=== PATIENT | male | born 1970 | race Caucasian/White ===

== ENCOUNTER 2018-12-28 05:05 | Emergency (ER) | payer OTHER ==
[~2018-12-28] VITALS: Ht 162.6 cm; Wt 77.1 kg
[2018-12-28 05:10] VITALS: BP 155/90
--- NOTE | 2018-12-28 05:10 | NUR ---
to bed # 11 ambulatory
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
--- NOTE | 2018-12-28 05:38 | NUR ---
Dr. George evaluating patient at bedside.
[2018-12-28 05:50] VITALS: BP 155/90
--- NOTE | 2018-12-28 05:50 | NUR ---
Patient discharged with v/s stable. Written and verbal after care instructions given and explained. Patient alert, oriented and verbalized understanding of instructions. Ambulatory with steady gait. All questions addressed prior to discharge. ID band removed. Patient advised to follow up with PMD. Rx of Bactrim and Motrin given. Patient educated on indication of medication including possible reaction and side effects. Opportunity to ask questions provided and answered.
== END 2018-12-28 05:50 | disposition home or self-care (01) ==
LOC: MED 05:05
DX: L03.113 Cellulitis of right upper limb (principal); L03.114 Cellulitis of left upper limb; L02.811 Cutaneous abscess of head [any part, except face]; F31.9 Bipolar disorder, unspecified; J44.9 Chronic obstructive pulmonary disease, unspecified; F17.200 Nicotine dependence, unspecified, uncomplicated; Z88.0 Allergy status to penicillin
CPT/HCPCS: 99283

== ENCOUNTER 2020-05-08 01:33 | Emergency (ER) | payer OTHER ==
[~2020-05-08] VITALS: Ht 162.6 cm; Wt 72.6 kg
[2020-05-08 01:38] VITALS: BP 142/90
[2020-05-08] MEDS ORDERED: AMOXIL/CLAVULANATE 875/125 MG 1 TAB PO ONE (01:55)
[2020-05-08] MEDS ORDERED: HYDROcodone/APAP 10/325 MG 1 TAB TAB PO STA (02:09)
[2020-05-08 03:28] VITALS: BP 142/90
== END 2020-05-08 03:28 | disposition home or self-care (01) ==
LOC: MED 01:33
DX: S61.451A Open bite of right hand, initial encounter (principal); R93.6 Abnormal findings on diagnostic imaging of limbs; J44.9 Chronic obstructive pulmonary disease, unspecified; Z88.0 Allergy status to penicillin; W64.XXXA Exposure to other animate mechanical forces, initial encounter; Y93.89 Activity, other specified; Y92.89 Other specified places as the place of occurrence of the external cause; Y99.8 Other external cause status
CPT/HCPCS: 73130; 99283; Q0092

== ENCOUNTER 2020-07-17 14:52 | Emergency (ER) | payer OTHER ==
[~2020-07-17] VITALS: Ht 162.6 cm; Wt 77.1 kg
[2020-07-17 14:54] VITALS: BP 125/71
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
[2020-07-17] MEDS: KETOROLAC 30 MG/ML VIAL IM ONE (15:52)
[2020-07-17] MEDS: HYDROcodone/APAP 5/325 MG 1 TAB TAB PO ONE (15:52)
[2020-07-17 16:12] VITALS: BP 125/71
--- NOTE | 2020-07-17 16:13 | NUR ---
Patient discharged with v/s stable. Written and verbal after care instructions given and explained. Patient alert, oriented and verbalized understanding of instructions. Ambulatory with steady gait. All questions addressed prior to discharge. ID band removed. Patient advised to follow up with PMD. Rx of KEFLEX, NAPROSYN given. Patient educated on indication of medication including possible reaction and side effects. Opportunity to ask questions provided and answered.
--- NOTE | 2020-07-17 16:14 | NUR ---
applied finger splint to right 4th digit without any issues
== END 2020-07-17 16:13 | disposition home or self-care (01) ==
LOC: MED 14:52
DX: M79.644 Pain in right finger(s) (principal); M19.90 Unspecified osteoarthritis, unspecified site; I10 Essential (primary) hypertension; J44.9 Chronic obstructive pulmonary disease, unspecified; Z88.0 Allergy status to penicillin
CPT/HCPCS: 29130; 73130; 96372; 99283; J1885; Q0092

== ENCOUNTER 2020-09-19 22:58 | Emergency (ER) | payer OTHER ==
[~2020-09-19] VITALS: Ht 162.6 cm; Wt 77.1 kg
[2020-09-19 23:00] VITALS: BP 170/88
--- NOTE | 2020-09-19 23:03 | NUR ---
TO LOBBY A/W BED AMBULATORY
--- NOTE | 2020-09-20 02:36 | NUR ---
PT LEFT WITHOUT BEING SEEN
== END 2020-09-20 02:36 | disposition left against medical advice (07) ==
LOC: MED 22:58
DX: L03.221 Cellulitis of neck (principal); Z53.21 Procedure and treatment not carried out due to patient leaving prior to being seen by health care provider

== ENCOUNTER 2020-09-21 12:30 | Emergency (ER) | payer OTHER ==
[~2020-09-21] VITALS: Ht 162.6 cm; Wt 77.6 kg
[2020-09-21 12:36] VITALS: BP 172/92
--- NOTE | 2020-09-21 12:43 | NUR ---
50 YO M BIB SELF FOR C/C OF LESION ON BACK OF NECK AND SWELLING TO PERINEAL AREA X3 DAYS. DENIES URINARY SYMPTOMS, STATES SEXUAL ACTIVITY WITH ONE FEMALE PARTNER. DENIES COVID SYMPTOMS. MED HX: HTN, KIDNEY STONES
--- NOTE | 2020-09-21 12:44 | NUR ---
DR. LYLES ASSESSING PT IN TRIAGE ROOM
--- NOTE | 2020-09-21 12:45 | NUR ---
CHAPERONES FOR ERMD WHILE DOING GENITAL EXAMINATION
--- NOTE | 2020-09-21 12:45 | NUR ---
Thu domingo in ED - 09/21/20 at 1247 by [email or web address] Female Bore Mill Operator accompanied female patient for Exam.
--- NOTE | 2020-09-21 12:56 | NUR ---
UA PROVIDED, SCANT AMOUNT OF URINE. WATER PROVIDED FOR ADDITIONAL SAMPLE IF NEEDED.
--- NOTE | 2020-09-21 13:31 | NUR ---
PT CALLED BACK TO CHAIR FOR LABS
--- NOTE | 2020-09-21 13:36 | NUR ---
PT TAKEN TO US VIA WHEELCHAIR
[2020-09-21 13:43] LABS: BASOPHILS % (AUTO) 0.4 % (0.0-2.0); EOSINOPHILS # (AUTO) 0.1 K/uL (0-0.4); EOSINOPHILS % (AUTO) 1.5 % (0.0-4.0); HEMATOCRIT 47.1 % (36-52); HEMOGLOBIN 15.9 g/dL (12.0-18.0); LYMPHOCYTES # (AUTO) 2.1 K/uL (2.0-11.5); LYMPHOCYTES % (AUTO) 22.1 % (20.5-51.1); MEAN CORPUSCULAR HEMOGLOBIN 31 pg (27-31); MEAN CORPUSCULAR HGB CONC 34 g/dL (33-37); MEAN CORPUSCULAR VOLUME 90.5 fL (80-94); MONOCYTES # (AUTO) 0.6 K/uL (0.8-1.0); MONOCYTES % (AUTO) 6.6 % (1.7-9.3); NEUTROPHILS # (AUTO) 6.6 K/uL (1.8-7.7); NEUTROPHILS % (AUTO) 69.4 % (42.2-75.2); PLATELET COUNT (AUTO) 319 K/uL (140-450); RED CELL DISTRIBUTION WIDTH 13.9 % (11.6-13.7); WHITE BLOOD COUNT (AUTO) 9.5 K/uL (4.8-10.8)
[2020-09-21 14:33] LABS: ALBUMIN 4.1 g/dL (3.4-5.0); ANION GAP 9.4 (8-16); CARBON DIOXIDE 32.5 mmol/L (21-32); CREATININE 1.2 mg/dL (0.6-1.3); POTASSIUM 3.9 mmol/L (3.5-5.1); TOTAL BILIRUBIN 0.3 mg/dL (0.0-1.0)
--- NOTE | 2020-09-21 15:41 | NUR ---
Called patient. No answer.
--- NOTE | 2020-09-21 16:17 | NUR ---
Patient ambulated to chair C. RN evaluating patient at bedside.
--- NOTE | 2020-09-21 16:48 | NUR ---
Dr Manzano at [facility] for ultrasound guided IV placement.
[2020-09-21] MEDS ORDERED: MORPHINE SULFATE 4 MG/ML SYR IVP ONE (17:50)
--- NOTE | 2020-09-21 17:59 | NUR ---
Patient refused IV morphine. Medication wasted and witnessed by ABBE Leiva. Dr Manzano made aware
[2020-09-21] MEDS ORDERED: LIDOCAINE/EPI 1% 1:100000 20 ML VIAL INJ ONE (18:10)
[2020-09-21 18:40] VITALS: BP 162/89
--- NOTE | 2020-09-21 18:40 | NUR ---
Patient discharged with v/s stable. Written and verbal after care instructions given and explained. Patient alert, oriented and verbalized understanding of instructions. Ambulatory with steady gait. All questions addressed prior to discharge. ID band removed. Patient advised to follow up with PMD. Rx of NORCO, BACTRIM given. Patient educated on indication of medication including possible reaction and side effects. Opportunity to ask questions provided and answered.
== END 2020-09-21 18:40 | disposition home or self-care (01) ==
LOC: MED 12:30
DX: N48.89 Other specified disorders of penis (principal); N48.29 Other inflammatory disorders of penis
CPT/HCPCS: 36415; 74177; 76870; 80053; 81002; 85025; 86140; 99285; J2001; J2270; Q9967

== ENCOUNTER 2020-11-04 08:27 | Emergency (ER) | payer OTHER ==
[~2020-11-04] VITALS: Ht 162.6 cm; Wt 81.6 kg
[2020-11-04 08:32] VITALS: BP 153/90
[2020-11-04] MEDS ORDERED: LIDOCAINE MPF 1% 10 MG/ML VIAL INJ ONE (09:10)
[2020-11-04] MEDS ORDERED: BACITRACIN OINT 500 UNITS/GM PKT TP ONE (09:25)
[2020-11-04 09:41] VITALS: BP 153/90
== END 2020-11-04 09:40 | disposition home or self-care (01) ==
LOC: MED 08:27
DX: L02.415 Cutaneous abscess of right lower limb (principal); J44.9 Chronic obstructive pulmonary disease, unspecified; I10 Essential (primary) hypertension; F17.210 Nicotine dependence, cigarettes, uncomplicated; Z88.0 Allergy status to penicillin
CPT/HCPCS: 10060; 99284; J2001

== ENCOUNTER 2020-11-15 12:05 | Emergency (ER) | payer OTHER ==
[~2020-11-15] VITALS: Ht 162.6 cm; Wt 31.8 kg
--- NOTE | 2020-11-15 12:13 | NUR ---
Patient ambulated to bed 2. RN evaluating the patient at bedside.
[2020-11-15 12:14] VITALS: BP 148/81
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
--- NOTE | 2020-11-15 12:23 | NUR ---
DR. KHAN AT BEDSIDE EVALATING PT.
[2020-11-15] MEDS: HYDROcodone/APAP 5/325 MG 1 TAB TAB PO ONE (12:44)
[2020-11-15] MEDS: ONDANSETRON 4 MG ODT PO ONE (12:45)
[2020-11-15 12:53] VITALS: BP 136/84
--- NOTE | 2020-11-15 12:54 | NUR ---
Patient provided with sandwich upon request.
--- NOTE | 2020-11-15 12:54 | NUR ---
Patient discharged with v/s stable. Written and verbal after care instructions given and explained. Patient alert, oriented and verbalized understanding of instructions. Ambulatory with steady gait. All questions addressed prior to discharge. ID band removed. Patient advised to follow up with PMD. Rx of Zofran 4mg, [place] 5mg-325mg, and Clindamycin 150mg given. Patient educated on indication of medication including possible reaction and side effects. Opportunity to ask questions provided and answered.
== END 2020-11-15 12:54 | disposition home or self-care (01) ==
LOC: MED 12:05
DX: L03.115 Cellulitis of right lower limb (principal); J44.1 Chronic obstructive pulmonary disease with (acute) exacerbation; I10 Essential (primary) hypertension; F17.200 Nicotine dependence, unspecified, uncomplicated; Z88.0 Allergy status to penicillin
CPT/HCPCS: 99283; Q0162

== ENCOUNTER 2021-04-11 14:26 | Emergency (ER) | payer OTHER ==
[~2021-04-11] VITALS: Ht 170.2 cm; Wt 88.5 kg
[2021-04-11 14:39] VITALS: BP 132/91
[2021-04-11] MEDS ORDERED: OXCA300T PO (15:08)
[2021-04-11] MEDS ORDERED: MIRT-91 PO (15:08)
[2021-04-11] MEDS ORDERED: IBUP-2218 PO (15:08)
[2021-04-11] MEDS ORDERED: ALBU0.0912 IH (15:08)
[2021-04-11] MEDS ORDERED: HYDR-3293 PO (15:08)
[2021-04-11] MEDS ORDERED: BECL10.62 INH (15:08)
[2021-04-11] MEDS ORDERED: HYDR10SY57 PO (15:08)
[2021-04-11 15:32] VITALS: BP 132/91
== END 2021-04-11 15:32 | disposition home or self-care (01) ==
LOC: MED 14:26
DX: E11.65 Type 2 diabetes mellitus with hyperglycemia (principal); J44.9 Chronic obstructive pulmonary disease, unspecified; R31.9 Hematuria, unspecified; F20.9 Schizophrenia, unspecified; Z88.0 Allergy status to penicillin; Z79.899 Other long term (current) drug therapy
CPT/HCPCS: 99281

== ENCOUNTER 2021-06-01 18:09 | Emergency (ER) | payer OTHER ==
[~2021-06-01] VITALS: Ht 162.6 cm; Wt 77.1 kg
[~2021-06-01 18:09] MED LIST: ALBU0.0912 IH; BECL10.62 INH; HYDR-3293 PO; HYDR10SY57 PO; IBUP-2218 PO; MIRT-91 PO; OXCA300T PO
--- NOTE | 2021-06-01 18:17 | NUR ---
50 Y/O MALE C/O RIGHT 3RD FINGER ABSCESS X 2 DAYS. PT STATES PAIN 7/10 DESCRIBES SHARP NON-RADIATING. DENIES N/V, DENIES FEVER/CHILLS. PMH:HTN ALLERGIES: PCN
[2021-06-01 18:20] VITALS: BP 155/98
[2021-06-01] MEDS ORDERED: KETOROLAC 30 MG/ML VIAL IM ONE (18:20)
--- NOTE | 2021-06-01 18:26 | NUR ---
PT AMBULATED TO XR WITH HOTEL CUSTODIAN.
--- NOTE | 2021-06-01 18:27 | NUR ---
50 Y/O MALE C/O RIGHT 3RD FINGER ABSCESS X 2 DAYS. PT STATES PAIN 7/10 DESCRIBES SHARP NON-RADIATING. DENIES N/V, DENIES FEVER/CHILLS. PMH:HTN ALLERGIES: PCN
--- NOTE | 2021-06-01 18:36 | NUR ---
PT AMBULATED TO [facility]
[2021-06-01] MEDS ORDERED: SULF-58 PO (18:46)
[2021-06-01] MEDS ORDERED: IBUP-1842 PO (18:46)
[2021-06-01 18:56] VITALS: BP 151/96
--- NOTE | 2021-06-01 18:58 | NUR ---
Patient discharged with v/s stable. Written and verbal after care instructions given PARONYCHIA and explained. Patient alert, oriented and verbalized understanding of instructions. Ambulatory with steady gait. All questions addressed prior to discharge. ID band removed. Patient advised to follow up with PMD. Rx of [id number] PO BID FOR 10DAYS, AND IBUPROFEN 400MG PO QID PRN given. Patient educated on indication of medication including possible reaction and side effects. Opportunity to ask questions provided and answered.
== END 2021-06-01 18:58 | disposition home or self-care (01) ==
LOC: MED 18:09
DX: L03.011 Cellulitis of right finger (principal); J44.9 Chronic obstructive pulmonary disease, unspecified; I10 Essential (primary) hypertension; Z79.899 Other long term (current) drug therapy; Z88.0 Allergy status to penicillin
CPT/HCPCS: 73140; 96372; 99283; J1885

== ENCOUNTER 2021-06-17 11:44 | Emergency (ER) | payer OTHER ==
[~2021-06-17] VITALS: Ht 162.6 cm; Wt 82.6 kg
[~2021-06-17 11:44] MED LIST changes: +IBUP-1842 PO; +SULF-58 PO
[2021-06-17 12:10] VITALS: BP 185/101
[2021-06-17 12:22] VITALS: BP 185/101
[2021-06-17] MEDS ORDERED: KETOROLAC 30 MG/ML VIAL IM ONE (12:50)
--- NOTE | 2021-06-17 13:06 | NUR ---
SANDWICH GIVEN TO PT.
[2021-06-17] MEDS ORDERED: NAPR-54 PO (14:24)
[2021-06-17] MEDS ORDERED: SULF-59 PO (14:24)
[2021-06-17] MEDS ORDERED: CEPH500C16 PO (14:24)
--- NOTE | 2021-06-17 14:30 | NUR ---
Patient discharged with v/s stable. Written and verbal after care instructions given and explained. Patient alert, oriented and verbalized understanding of instructions. Ambulatory with steady gait. All questions addressed prior to discharge. ID band removed. Patient advised to follow up with PMD. Rx of Cephalexin, Naproxen, Bactrim given. Patient educated on indication of medication including possible reaction and side effects. Opportunity to ask questions provided and answered.
== END 2021-06-17 14:30 | disposition home or self-care (01) ==
LOC: MED 11:44
DX: L03.011 Cellulitis of right finger (principal); J44.9 Chronic obstructive pulmonary disease, unspecified; I10 Essential (primary) hypertension; Z88.0 Allergy status to penicillin; Z79.899 Other long term (current) drug therapy
CPT/HCPCS: 73130; 96372; 99283; J1885

== ENCOUNTER 2021-07-26 07:49 | Emergency (ER) | payer OTHER ==
[~2021-07-26] VITALS: Ht 162.6 cm; Wt 85.0 kg
[~2021-07-26 07:49] MED LIST changes: +CEPH500C16 PO; +NAPR-54 PO; +SULF-59 PO
[2021-07-26 07:56] VITALS: BP 171/105
--- NOTE | 2021-07-26 08:08 | NUR ---
DR CHAPIN AT BEDSIDE EVALUATING PT
[2021-07-26] MEDS ORDERED: DOXYCYCLINE 100 MG CAP PO SCH (08:15)
--- NOTE | 2021-07-26 08:15 | NUR ---
51 Y/O MALE BIB SELF FOR "BUG BITES" IN HIS RIGHT AXILLA. 3 PINK BUMPS NOTED UNDER HIS RIGHT ARM, TENDER TO TOUCH. AOX4 , ABLE TO MAKE ALL NEEDS KNOWN. DENIES N/V/D. DENIES CHEST PAIN. PMH: HTN, COPD ALLERGIES:PCN NO HOME MEDS
[2021-07-26] MEDS ORDERED: DOXY-690 PO (08:16)
[2021-07-26] MEDS ORDERED: ACETAMINOPHEN EXTRA STRENGTH 500 MG TAB PO ONE (08:25)
--- NOTE | 2021-07-26 08:57 | NUR ---
DR CHAPIN AT BEDSIDE
[2021-07-26 09:07] VITALS: BP 141/82
== END 2021-07-26 09:07 | disposition home or self-care (01) ==
LOC: MED 07:49
DX: S00.96XA Insect bite (nonvenomous) of unspecified part of head, initial encounter (principal); L73.2 Hidradenitis suppurativa; J44.9 Chronic obstructive pulmonary disease, unspecified; I10 Essential (primary) hypertension; Z88.0 Allergy status to penicillin; Z79.899 Other long term (current) drug therapy; W57.XXXA Bitten or stung by nonvenomous insect and other nonvenomous arthropods, initial encounter; Y93.89 Activity, other specified; Y92.89 Other specified places as the place of occurrence of the external cause; Y99.8 Other external cause status
CPT/HCPCS: 99283

== ENCOUNTER 2021-08-29 17:46 | Emergency (ER) | payer OTHER ==
[~2021-08-29] VITALS: Ht 160 cm; Wt 84.8 kg
[~2021-08-29 17:46] MED LIST changes: +DOXY-690 PO
--- NOTE | 2021-08-29 17:48 | NUR ---
BIB WHEELCHAIR TO ER BED 4
[2021-08-29 17:53] VITALS: BP 129/94
--- NOTE | 2021-08-29 17:59 | NUR ---
51 Y/O MALE C/O VOMITING AND ABDOMINAL PAIN 07/21 DESCRIBES BURNING NON-RADIATING. ABDOMEN IS SOFT, ROUND, BOWEL SOUNDS ACTIVE X4, LAST BM 08/28/21. PT STATES + DYSURIA X LAST NIGHT. DENIES FEVER/CHILLS. PMH: HTN, COPD ALLERGY: PCN
--- NOTE | 2021-08-29 18:26 | NUR ---
DR. PALACIOS AT PT BEDSIDE FOR FURTHER EVALUATION.
[2021-08-29] MEDS ORDERED: FAMOTIDINE 20 MG TAB PO ONE (18:35)
[2021-08-29] MEDS ORDERED: DICYCLOMINE 10 MG CAP PO ONE (18:35)
[2021-08-29] MEDS ORDERED: ONDANSETRON 4 MG ODT PO ONE (18:35)
--- NOTE | 2021-08-29 18:40 | NUR ---
PT STATES HE IS UNABLE TO PROVIDE UA SAMPLE AT THIS TIME. MADE AWARE.
--- NOTE | 2021-08-29 19:19 | NUR ---
GAVE REPORT TO ABBE COREAS. TRANSFER OF CARE AT THIS TIME.
--- NOTE | 2021-08-29 20:17 | NUR ---
patient want to call his sister betsey to pick him out AT THE MOMENT TO BE DISCHARGED and his call and he say is ok to give information about his health status //Ronak MCADAMS
[2021-08-29] MEDS ORDERED: ONDA-188 SL (20:21)
[2021-08-29 20:28] VITALS: BP 132/72
[2021-08-29 20:33] LABS: BARBITURATE, URINE NEGATIVE ng/ml (NEG <=200); BENZODIAZEPINE, URINE NEGATIVE ng/mL (NEG <=200); CANNABINOID, URINE POSITIVE ng/mL (NEG <=50); COCAINE, URINE NEGATIVE ng/mL (NEG <=300); OPIATE, URINE NEGATIVE ng/mL (NEG <=2000); PHENCYCLIDINE SCREEN,URINE NEGATIVE ng/mL (NEG <=25)
--- NOTE | 2021-08-29 20:33 | NUR ---
PATIENT DC HOME FEELING WELL VITALS SIGNS IN NORMAL LIMITS NOT COMPLAINING OF PAIN WE TALK TO [place] HIS SISTER AND SHE SAY SHE IS NOT ABLE TO PICK HIM OUT AND HE SAY THAT HIS GOING IN HIS OWN PATIENT SIGNS THE DC INSTRUCTION AND WALK OUT WE RECOMENDED TO COMING BACK TO THE HOSPITAL IF THE SYMPTOMS GET WORSE OR DOESNT IMPROVING //Ronak MCADAMS
== END 2021-08-29 20:22 | disposition home or self-care (01) ==
LOC: MED 17:46
DX: K52.9 Noninfective gastroenteritis and colitis, unspecified (principal); R11.2 Nausea with vomiting, unspecified; R19.7 Diarrhea, unspecified
CPT/HCPCS: 80305; 81002; 99284; Q0162

== ENCOUNTER 2021-09-27 19:40 | Emergency (ER) | payer OTHER ==
[~2021-09-27] VITALS: Ht 157.5 cm; Wt 81.6 kg
[~2021-09-27 19:40] MED LIST changes: +ONDA-188 SL
[2021-09-27 20:33] VITALS: BP 149/90
[2021-09-27] MEDS ORDERED: RIFA300C6 PO (22:29)
[2021-09-27] MEDS ORDERED: NAPR-54 PO (22:29)
[2021-09-27] MEDS ORDERED: CLIN300C2 PO (22:29)
[2021-09-27] MEDS ORDERED: HYDROcodone/APAP 10/325 MG 1 TAB TAB PO STA (22:30)
[2021-09-27] MEDS ORDERED: CLINDAMYCIN 150 MG CAP PO ONE (22:30)
[2021-09-27] MEDS ORDERED: OXCA300T PO (22:46)
[2021-09-27] MEDS ORDERED: HYDR-3293 PO (22:46)
[2021-09-27] MEDS ORDERED: MIRT-91 PO (22:46)
[2021-09-27] MEDS: RIFAXIMIN 550 MG TAB PO SCH (23:00)
[2021-09-28] MEDS ORDERED: HYDR-5191 PO (00:26)
[2021-09-28] MEDS: RIFAXIMIN 550 MG TAB PO SCH (00:26)
[2021-09-28] MEDS ORDERED: BECL10.62 INH (00:26)
[2021-09-28] MEDS ORDERED: ALBU0.0912 IH (00:26)
[2021-09-28 00:30] VITALS: BP 149/90
--- NOTE | 2021-09-28 00:30 | NUR ---
Patient discharged with v/s stable. Written and verbal after care instructions given and explained. Patient alert, oriented and verbalized understanding of instructions. Ambulatory with steady gait. All questions addressed prior to discharge. ID band removed. Patient advised to follow up with PMD. Rx of CLEOCIN, LOSARTAN, REMERON, NAPROSYN, TRILEPTAL, RIFAMPIN given. Patient educated on indication of medication including possible reaction and side effects. Opportunity to ask questions provided and answered.
== END 2021-09-28 00:30 | disposition home or self-care (01) ==
LOC: MED 19:40
DX: L73.2 Hidradenitis suppurativa (principal)
CPT/HCPCS: 99284

== ENCOUNTER 2022-02-01 20:56 | Emergency (ER) | payer MEDICAID, OTHER ==
[~2022-02-01] VITALS: Ht 162.6 cm; Wt 81.2 kg
[~2022-02-01 20:56] MED LIST changes: +CLIN300C2 PO; +HYDR-5191 PO; +RIFA300C49 PO
[2022-02-01 21:04] VITALS: BP 182/100
[2022-02-01 21:39] LABS: BASOPHILS % (AUTO) 0.3 % (0.0-2.0); EOSINOPHILS # (AUTO) 0.2 K/uL (0-0.4); EOSINOPHILS % (AUTO) 1.8 % (0.0-4.0); HEMATOCRIT 41.4 % (36-52); HEMOGLOBIN 14.3 g/dL (12.0-18.0); LYMPHOCYTES # (AUTO) 2.9 K/uL (2.0-11.5); LYMPHOCYTES % (AUTO) 32.3 % (20.5-51.1); MEAN CORPUSCULAR HEMOGLOBIN 31 pg (27-31); MEAN CORPUSCULAR HGB CONC 35 g/dL (33-37); MEAN CORPUSCULAR VOLUME 88.4 fL (80-94); MONOCYTES # (AUTO) 0.7 K/uL (0.8-1.0); MONOCYTES % (AUTO) 7.3 % (1.7-9.3); NEUTROPHILS # (AUTO) 5.2 K/uL (1.8-7.7); NEUTROPHILS % (AUTO) 58.3 % (42.2-75.2); PLATELET COUNT (AUTO) 294 K/uL (140-450); RED BLOOD CELL COUNT(AUTO) 4.69 MIL/uL (4.20-6.10); RED CELL DISTRIBUTION WIDTH 14.1 % (11.6-13.7)
[2022-02-01] MEDS ORDERED: VANCOMYCIN 1,000 MG VIAL ONE (21:48)
[2022-02-01 21:57] LABS: ALBUMIN 3.6 g/dL (3.4-5.0); ANION GAP 10.2 (8-16); CARBON DIOXIDE 27.3 mmol/L (21-32); POTASSIUM 3.5 mmol/L (3.5-5.1); TOTAL BILIRUBIN 0.2 mg/dL (0.0-1.0)
[2022-02-01] MEDS ORDERED: SULF-59 PO (22:18)
[2022-02-01] MEDS ORDERED: IBUP-2213 PO (22:18)
[2022-02-01] MEDS: VANCOMYCIN 1,000 MG in DEXTROSE 5% 250 ML IV ONE (22:20)
[2022-02-01] MEDS: cefOXitin 2,000 MG in DEXTROSE 5% 50 ML IV ONE (22:20)
[2022-02-01] MEDS ORDERED: ACET-8386 PO (22:55)
[2022-02-01 23:00] VITALS: BP 135/78
== END 2022-02-01 23:00 | disposition home or self-care (01) ==
LOC: MED 20:56
DX: L03.115 Cellulitis of right lower limb (principal); J44.9 Chronic obstructive pulmonary disease, unspecified; I10 Essential (primary) hypertension; Z88.0 Allergy status to penicillin; Z79.899 Other long term (current) drug therapy
CPT/HCPCS: 36415; 80053; 83605; 85025; 85651; 86140; 90471; 90715; 96365; 99284; J0694; J3370

== ENCOUNTER 2022-02-25 10:53 | Emergency (ER) | payer MEDICAID ==
[~2022-02-25] VITALS: Ht 167.6 cm; Wt 80.7 kg
[~2022-02-25 10:53] MED LIST changes: +ACET-8386 PO; +IBUP-2213 PO
[2022-02-25 11:13] VITALS: BP 140/89
--- NOTE | 2022-02-25 11:26 | NUR ---
51 Y/O MALE BIB SELF TO THE ER BECAUSE HE WAS "NOT FEELING WELL" STATED THAT HE WANTED TO SLEEP AND WAS TIRED. STATED THAT HE TOOK "PUFFS OF WEED" DENIED SMOKING OTHER MATERIALS. DENIED WANTING TO HARM SELF AND OTHERS. JILLIAN PMH: BIPOLAR, SCHIZOPHRENIA
--- NOTE | 2022-02-25 12:11 | NUR ---
DR LAWRENCE AT BEDSIDE EVALUATING PT
--- NOTE | 2022-02-25 12:55 | NUR ---
PT REFUSED LABS, ERMD MADE AWRE
--- NOTE | 2022-02-25 13:19 | NUR ---
PT MOVED TO CHAIR A
--- NOTE | 2022-02-25 14:00 | NUR ---
Patient does not wish to proceed with medical care recommended by DR LAWRENCE. Patient given information related to possible complications, up to and including , which could occur as a result of leaving hospital at this time. Patient verbalizes understanding of risks involved leaving against medical advice. Patient has signed AMA form.
== END 2022-02-25 14:00 | disposition left against medical advice (07) ==
LOC: MED 10:53
DX: F12.90 Cannabis use, unspecified, uncomplicated (principal); R94.31 Abnormal electrocardiogram [ECG] [EKG]; J44.9 Chronic obstructive pulmonary disease, unspecified; I10 Essential (primary) hypertension; F20.9 Schizophrenia, unspecified; Z88.0 Allergy status to penicillin; Z79.899 Other long term (current) drug therapy
CPT/HCPCS: 71045; 93005; 99283; Q0092

== ENCOUNTER 2022-04-02 04:55 | Emergency (ER) | payer MEDICAID ==
[~2022-04-02] VITALS: Ht 167.6 cm; Wt 86.2 kg
[2022-04-02 04:55] VITALS: BP 160/80
--- NOTE | 2022-04-02 04:59 | NUR ---
PT ADRIEL BLS. TAKEN TO BED 7
--- NOTE | 2022-04-02 05:11 | NUR ---
er md at bedside examining pt
[2022-04-02] MEDS ORDERED: HYDROcodone/APAP 5/325 MG 1 TAB TAB PO ONE (05:20)
--- NOTE | 2022-04-02 05:32 | NUR ---
Thu domingo in [facility] - 04/02/22 at 0533 by [email or web address] xray at bedside
--- NOTE | 2022-04-02 05:32 | NUR ---
RADIOLOGY AT BEDSIDE.
[2022-04-02] MEDS ORDERED: NAPR-54 PO (06:11)
[2022-04-02] MEDS ORDERED: ACET-8386 PO (06:11)
--- NOTE | 2022-04-02 06:14 | NUR ---
pt is able to ambulate to restroom by use of crutches
[2022-04-02 06:21] VITALS: BP 154/79
--- NOTE | 2022-04-02 06:21 | NUR ---
Patient discharged with v/s stable. Written and verbal after care instructions given and explained. Patient alert, oriented and verbalized understanding of instructions. Ambulatory with to home. All questions addressed prior to discharge. ID band removed. Patient advised to follow up with PMD. Rx of NORCO 5-325 AND NAPROSYN given. Patient educated on indication of medication including possible reaction and side effects. Opportunity to ask questions provided and answered. VSS, A/OX4, UNLABORED BREATHING, AND AMBULATORY.
== END 2022-04-02 06:21 | disposition home or self-care (01) ==
LOC: MED 04:55
DX: S82.832A Other fracture of upper and lower end of left fibula, initial encounter for closed fracture (principal); I10 Essential (primary) hypertension; J44.9 Chronic obstructive pulmonary disease, unspecified; Z88.0 Allergy status to penicillin; Z98.890 Other specified postprocedural states; X58.XXXA Exposure to other specified factors, initial encounter; Y93.89 Activity, other specified; Y92.89 Other specified places as the place of occurrence of the external cause; Y99.8 Other external cause status
CPT/HCPCS: 29515; 73590; 99283; Q0092

== ENCOUNTER 2022-05-15 09:23 | Emergency (ER) | payer BC, MEDICAID ==
[~2022-05-15] VITALS: Ht 162.6 cm; Wt 79.5 kg
[2022-05-15 09:31] VITALS: BP 170/99
--- NOTE | 2022-05-15 09:35 | NUR ---
PT AMB TO BED 11.
--- NOTE | 2022-05-15 09:44 | NUR ---
PT WOUND TO R HAND IRRIGATED
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
[2022-05-15] MEDS ORDERED: LIDOCAINE/EPI 1% 1:100000 20 ML VIAL INJ ONE (10:40)
[2022-05-15 10:53] VITALS: BP 155/89
--- NOTE | 2022-05-15 11:02 | NUR ---
PER ERMD ORDER PTS WOUND WAS CLEANED AND IRRIGATED WITH SALINE AND BETADINE SOLUTION
[2022-05-15] MEDS ORDERED: BACITRACIN OINT 500 UNITS/GM PKT TP ONE (12:05)
[2022-05-15] MEDS ORDERED: METR-435 PO (12:08)
[2022-05-15] MEDS ORDERED: NAPR-54 PO (12:08)
[2022-05-15] MEDS ORDERED: CIPR500T4 PO (12:08)
--- NOTE | 2022-05-15 12:08 | NUR ---
Patient discharged with v/s stable. Written and verbal after care instructions given and explained. Patient alert, oriented and verbalized understanding of instructions. Ambulatory with steady gait. All questions addressed prior to discharge. ID band removed. Patient advised to follow up with PMD. Rx given. Patient educated on indication of medication including possible reaction and side effects. Opportunity to ask questions provided and answered. pt refused dressing and ointment application. pt became verbally aggressive stating he does not want to be treated. pt also refused suturing by ermd. pt advised of possibility of infection if not able to be sutured. pt insisted on refusing. pt requested refill on htn medication but unaware of the name and dosage. ermd made aware. pt was not compliant with treatment and ambulated out of ed
== END 2022-05-15 12:08 | disposition home or self-care (01) ==
LOC: MED 09:23
DX: S61.451A Open bite of right hand, initial encounter (principal); J44.9 Chronic obstructive pulmonary disease, unspecified; I10 Essential (primary) hypertension; Z88.0 Allergy status to penicillin; Z79.899 Other long term (current) drug therapy; Z98.890 Other specified postprocedural states; W54.0XXA Bitten by dog, initial encounter; Y93.89 Activity, other specified; Y92.89 Other specified places as the place of occurrence of the external cause; Y99.8 Other external cause status
CPT/HCPCS: 90471; 90715; 99283; J2001

== ENCOUNTER 2022-06-18 13:46 | Emergency (ER) | payer BC ==
[~2022-06-18] VITALS: Ht 162.6 cm; Wt 81.6 kg
[2022-06-18 13:46] VITALS: BP 165/98
[~2022-06-18 13:46] MED LIST changes: +CIPR500T4 PO; +METR-435 PO
--- NOTE | 2022-06-18 13:47 | NUR ---
PATIENT BIBA TO BED 6 AT THIS TIME.
--- NOTE | 2022-06-18 14:20 | NUR ---
MD ROBERTO AT BEDSIDE FOR EVALUATION
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
--- NOTE | 2022-06-18 14:30 | NUR ---
LAB AT BEDSIDE
[2022-06-18 14:37] LABS: BASOPHILS % (AUTO) 0.4 % (0.0-2.0); EOSINOPHILS # (AUTO) 0.2 K/uL (0-0.4); HEMATOCRIT 44.3 % (36-52); HEMOGLOBIN 14.9 g/dL (12.0-18.0); LYMPHOCYTES # (AUTO) 2.3 K/uL (2.0-11.5); MEAN CORPUSCULAR HEMOGLOBIN 30 pg (27-31); MEAN CORPUSCULAR HGB CONC 34 g/dL (33-37); MEAN CORPUSCULAR VOLUME 88.4 fL (80-94); MONOCYTES # (AUTO) 0.6 K/uL (0.8-1.0); MONOCYTES % (AUTO) 6.8 % (1.7-9.3); NEUTROPHILS # (AUTO) 6.4 K/uL (1.8-7.7); NEUTROPHILS % (AUTO) 66.8 % (42.2-75.2); PLATELET COUNT (AUTO) 295 K/uL (140-450); RED BLOOD CELL COUNT(AUTO) 5.01 MIL/uL (4.20-6.10); RED CELL DISTRIBUTION WIDTH 13.8 % (11.6-13.7); WHITE BLOOD COUNT (AUTO) 9.5 K/uL (4.8-10.8)
[2022-06-18 15:19] LABS: ALBUMIN 3.3 g/dL (3.4-5.0); ANION GAP 16.7 (8-16); CARBON DIOXIDE 24.7 mmol/L (21-32); POTASSIUM 3.4 mmol/L (3.5-5.1); TOTAL BILIRUBIN 0.2 mg/dL (0.0-1.0)
[2022-06-18] MEDS: ONDANSETRON 4 MG/2 ML VIAL IVP ONE (16:24)
--- NOTE | 2022-06-18 17:13 | NUR ---
pt swabbed for covid(camila). handed to lab
[2022-06-18] MEDS: NACL 0.9% 1,000 ML IV SCH (17:53)
[2022-06-18] MEDS ORDERED: ONDA-188 PO (18:34)
--- NOTE | 2022-06-18 19:10 | NUR ---
IV removed, catheter intact and site benign. Applied folded 4x4 gauze and tape to stop bleeding.
--- NOTE | 2022-06-18 19:16 | NUR ---
Patient discharged with v/s stable. Written and verbal after care instructions given and explained. Patient alert, oriented and verbalized understanding of instructions. Ambulatory with steady gait. All questions addressed prior to discharge. ID band removed. Patient advised to follow up with PMD. Rx of ZOFRAN given. Patient educated on indication of medication including possible reaction and side effects. Opportunity to ask questions provided and answered. PROVIDED W/ FOOD AND UBER RIDE TO [id number] [facility] [id number]
[2022-06-18 19:17] VITALS: BP 149/88
--- NOTE | 2022-06-18 19:17 | NUR ---
The patient's care was reviewed and supervised by Chanel Long RN.
== END 2022-06-18 19:16 | disposition home or self-care (01) ==
LOC: MED 13:46
DX: R10.9 Unspecified abdominal pain (principal); Z20.822 Contact with and (suspected) exposure to COVID-19; E86.0 Dehydration; I10 Essential (primary) hypertension; F20.9 Schizophrenia, unspecified; J44.9 Chronic obstructive pulmonary disease, unspecified; F17.200 Nicotine dependence, unspecified, uncomplicated; Z88.0 Allergy status to penicillin; Z79.899 Other long term (current) drug therapy
CPT/HCPCS: 36415; 74177; 80053; 83690; 85025; 87426; 93005; 96361; 96374; 99285; J2405; J7030; Q9967

== ENCOUNTER 2022-06-25 22:14 | Emergency (ER) | payer BC ==
[~2022-06-25] VITALS: Ht 162.6 cm; Wt 84.8 kg
[~2022-06-25 22:14] MED LIST changes: +ONDA-188 PO
[2022-06-25 23:00] VITALS: BP 142/124
--- NOTE | 2022-06-25 23:13 | NUR ---
PT AMB TO BED 05
--- NOTE | 2022-06-25 23:31 | NUR ---
51YR OLD MALE BIB SELF C/O LEFT KNEE PAIN X2DAYS. SWELLING/REDDENED TO AREA . PT STATES A POSSIBLE "BUG BITE" PT IS HOMELESS. PT IS A&OX4. SKIN WARM DRY INTACT. DENIES ANY INJURY OR TRAUMA TO LEFT LEG. HOB ELEVATED . BED AT LOWEST POSITION. SIDE UP X1. PCN COPD STENT HTN DEPRESSION
[2022-06-26] MEDS ORDERED: ceFAZolin 1,000 MG VIAL IM ONE (00:55)
--- NOTE | 2022-06-26 01:10 | NUR ---
SPOKE TO ABOUT DWIGHT DUMONT. COMFORTABLE WITH GIVING.
--- NOTE | 2022-06-26 01:12 | NUR ---
PATIENT MEDICATED PER ORDERS. TOLERATED WELL.
[2022-06-26] MEDS ORDERED: CEPH-588 PO (01:17)
[2022-06-26] MEDS ORDERED: SULF-59 PO (01:17)
[2022-06-26] MEDS ORDERED: BACTO TP (01:18)
--- NOTE | 2022-06-26 01:24 | NUR ---
The patient's care was reviewed and supervised by Lara Bush RN, RN.
[2022-06-26] MEDS ORDERED: CLONIDINE HYDROCHLORIDE 0.1 MG TAB PO ONE (01:35)
--- NOTE | 2022-06-26 01:38 | NUR ---
BP 207/115 HR 91, ERMD SHRADDHA MADE AWARE. ORDERS PLACED AND CARRIED OUT.
--- NOTE | 2022-06-26 02:36 | NUR ---
Patient discharged with v/s stable. Written and verbal after care instructions given and explained. Patient verbalized understanding. Ambulatory with steady gait. All questions addressed prior to discharge. Advised to follow up with PMD.
[2022-06-26 02:37] VITALS: BP 175/86
--- NOTE | 2022-06-26 02:41 | NUR ---
The patient's care was reviewed and supervised by Lara Bush RN, RN.
== END 2022-06-26 02:36 | disposition home or self-care (01) ==
LOC: MED 22:14
DX: L02.416 Cutaneous abscess of left lower limb (principal); J44.9 Chronic obstructive pulmonary disease, unspecified; I10 Essential (primary) hypertension; F17.210 Nicotine dependence, cigarettes, uncomplicated; Z79.899 Other long term (current) drug therapy
CPT/HCPCS: 96372; 99283; J0690

== ENCOUNTER 2022-10-24 13:23 | Emergency (ER) | payer BC, MEDICAID ==
[~2022-10-24] VITALS: Ht 162.6 cm; Wt 81.6 kg
[~2022-10-24 13:23] MED LIST changes: -ACET-8386 PO; +ACET-8905 PO; +BACTO TP; +CEPH-588 PO
[2022-10-24 13:40] VITALS: BP 135/84
[2022-10-24] MEDS ORDERED: KETOROLAC 30 MG/ML VIAL IM ONE (15:15)
[2022-10-24] MEDS ORDERED: IBUP-2213 PO (17:05)
[2022-10-24] MEDS ORDERED: GABA300C PO (17:05)
--- NOTE | 2022-10-24 17:50 | NUR ---
LEFT W/O DC PAPERS, MOTRIN AND GABAPENTIN SENT TO PHARMACY, SOURAV MADE AWARE
== END 2022-10-24 17:50 | disposition home or self-care (01) ==
LOC: MED 13:23
DX: M79.642 Pain in left hand (principal); M79.641 Pain in right hand; J44.9 Chronic obstructive pulmonary disease, unspecified; I10 Essential (primary) hypertension; Z79.899 Other long term (current) drug therapy
CPT/HCPCS: 96372; 99283; J1885

== ENCOUNTER 2022-11-09 12:17 | Emergency (ER) | payer MEDICAID ==
[~2022-11-09] VITALS: Ht 162.6 cm; Wt 93.4 kg
[~2022-11-09 12:17] MED LIST changes: +GABA300C PO
[2022-11-09 12:19] VITALS: BP 186/99
--- NOTE | 2022-11-09 12:22 | NUR ---
PT ATTEMPTED TO WALK TO ER BED 5 AND LOST BALANCE. PT DID NOT FALL. PT WAS ASSISTED INTO W/C AND W/C TO BED. MALGORZATA DNOALDSON
--- NOTE | 2022-11-09 12:26 | NUR ---
DR MCGARRY AT BEDSIDE EVALUATING PT
[2022-11-09] MEDS ORDERED: NACL 0.9% 1,000 ML IV ONE (12:30)
[2022-11-09] MEDS ORDERED: KETOROLAC 15 MG/ML VIAL IVP ONE (12:45)
[2022-11-09 12:46] LABS: BASOPHILS % (AUTO) 0.4 % (0.0-2.0); EOSINOPHILS # (AUTO) 0.1 K/uL (0-0.4); EOSINOPHILS % (AUTO) 1.2 % (0.0-4.0); HEMATOCRIT 44.3 % (36-52); LYMPHOCYTES # (AUTO) 2.4 K/uL (2.0-11.5); LYMPHOCYTES % (AUTO) 35.3 % (20.5-51.1); MEAN CORPUSCULAR HEMOGLOBIN 30 pg (27-31); MEAN CORPUSCULAR HGB CONC 34 g/dL (33-37); MONOCYTES # (AUTO) 0.6 K/uL (0.8-1.0); MONOCYTES % (AUTO) 8.8 % (1.7-9.3); NEUTROPHILS # (AUTO) 3.7 K/uL (1.8-7.7); NEUTROPHILS % (AUTO) 54.3 % (42.2-75.2); PLATELET COUNT (AUTO) 278 K/uL (140-450); RED BLOOD CELL COUNT(AUTO) 4.98 MIL/uL (4.20-6.10); WHITE BLOOD COUNT (AUTO) 6.8 K/uL (4.8-10.8)
[2022-11-09 13:03] LABS: ANION GAP 10.2 (8-16); CARBON DIOXIDE 29.3 mmol/L (21-32); CREATININE 1.1 mg/dL (0.6-1.3); POTASSIUM 3.5 mmol/L (3.5-5.1); TOTAL BILIRUBIN 0.2 mg/dL (0.0-1.0)
--- NOTE | 2022-11-09 13:24 | NUR ---
Patient was taken to CT via [facility].
--- NOTE | 2022-11-09 13:34 | NUR ---
Patient returned from CT.
[2022-11-09 13:54] LABS: APPEARANCE,URINE CLEAR (CLEAR); COLOR,URINE YELLOW (YELLOW); UGLUCOSE NEGATIVE (NEGATIVE)
[2022-11-09 13:55] LABS: BILIRUBIN,URINE NEGATIVE (NEGATIVE); BLOOD, URINE NEGATIVE (NEGATIVE); LEUKOCYTE ESTERASE ,URINE NEGATIVE (NEGATIVE); NITRITE, URINE NEGATIVE (NEGATIVE)
[2022-11-09 14:01] LABS: BARBITURATE, URINE NEGATIVE ng/ml (NEG <=200); BENZODIAZEPINE, URINE NEGATIVE ng/mL (NEG <=200); CANNABINOID, URINE NEGATIVE ng/mL (NEG <=50); COCAINE, URINE NEGATIVE ng/mL (NEG <=300); OPIATE, URINE NEGATIVE ng/mL (NEG <=2000); PHENCYCLIDINE SCREEN,URINE NEGATIVE ng/mL (NEG <=25)
--- NOTE | 2022-11-09 14:03 | NUR ---
Dr. Pettit re-evaluating patient at bedside.
[2022-11-09] MEDS ORDERED: MECLIZINE 25 MG TAB PO ONE (14:05)
[2022-11-09] MEDS ORDERED: MECL-303 PO (14:29)
[2022-11-09 15:18] VITALS: BP 181/87
--- NOTE | 2022-11-09 15:18 | NUR ---
Patient discharged with v/s stable. Written and verbal after care instructions given. Patient alert, oriented and verbalized understanding of instructions. Ambulatory with steady gait. All questions addressed prior to discharge. ID band removed. Patient advised to follow up with PMD. Rx of MECLIZINE given. Opportunity to ask questions provided and answered.
== END 2022-11-09 15:18 | disposition home or self-care (01) ==
LOC: MED 12:17
DX: R42 Dizziness and giddiness (principal); R20.2 Paresthesia of skin; F15.10 Other stimulant abuse, uncomplicated
CPT/HCPCS: 36415; 70450; 80053; 80305; 81003; 83605; 85025; 96361; 96374; 99285; G0482; J1885; J7030; J8597; 99284

== ENCOUNTER 2022-12-06 13:50 | Emergency (ER) | payer MEDICAID ==
[~2022-12-06] VITALS: Ht 162.6 cm; Wt 81.6 kg
[~2022-12-06 13:50] MED LIST changes: +MECL-303 PO
[2022-12-06 13:54] VITALS: BP 149/85
[2022-12-06] MEDS ORDERED: LORazepam 2 MG/ML VIAL IM ONE (15:00)
--- NOTE | 2022-12-06 15:13 | NUR ---
Patient discharged with v/s stable. Written and verbal after care instructions given and explained. Patient verbalized understanding. Ambulatory with to car. All questions addressed prior to discharge. Advised to follow up with PMD.
== END 2022-12-06 15:13 | disposition home or self-care (01) ==
LOC: MED 13:50
DX: F41.9 Anxiety disorder, unspecified (principal); F41.0 Panic disorder [episodic paroxysmal anxiety]; Z88.0 Allergy status to penicillin; J44.9 Chronic obstructive pulmonary disease, unspecified; I10 Essential (primary) hypertension; F17.200 Nicotine dependence, unspecified, uncomplicated; Z71.6 Tobacco abuse counseling; Z79.899 Other long term (current) drug therapy
CPT/HCPCS: 96372; 99283; J2060

== ENCOUNTER 2023-06-10 20:01 | Emergency (ER) | payer MEDICAID ==
[~2023-06-10] VITALS: Ht 165.1 cm; Wt 107.0 kg
[2023-06-10 20:15] VITALS: BP 169/101; PULSE 100; RESP 18; TEMP 96.9; O2SAT 99
[2023-06-10 22:08] VITALS: O2SAT 95
[2023-06-11 00:14] VITALS: O2SAT 95
[2023-06-11] MEDS ORDERED: FUROSEMIDE 40 MG/4 ML VIAL IVP SCH (02:00)
[2023-06-11 02:16] LABS: BASOPHILS # (AUTO) 0.1 K/uL (0.00-0.22); BASOPHILS % (AUTO) 0.7 % (0.0-2.0); EOSINOPHILS # (AUTO) 0.3 K/uL (0-0.4); EOSINOPHILS % (AUTO) 3.1 % (0.0-4.0); HEMATOCRIT 43.3 % (36-52); LYMPHOCYTES # (AUTO) 2.7 K/uL (2.0-11.5); MEAN CORPUSCULAR HEMOGLOBIN 31 pg (27-31); MEAN CORPUSCULAR HGB CONC 35 g/dL (33-37); MEAN CORPUSCULAR VOLUME 87.9 fL (80-94); MONOCYTES % (AUTO) 9.3 % (1.7-9.3); NEUTROPHILS # (AUTO) 6.7 K/uL (1.8-7.7); NEUTROPHILS % (AUTO) 61.9 % (42.2-75.2); PLATELET COUNT (AUTO) 381 K/uL (140-450); RED BLOOD CELL COUNT(AUTO) 4.93 MIL/uL (4.20-6.10); RED CELL DISTRIBUTION WIDTH 14.1 % (11.6-13.7); WHITE BLOOD COUNT (AUTO) 10.8 K/uL (4.8-10.8)
[2023-06-11] MEDS ORDERED: KETOROLAC 30 MG/ML VIAL IVP ONE (02:30)
[2023-06-11 02:31] LABS: ALBUMIN 3.4 g/dL (3.4-5.0); ANION GAP 10.2 (8-16); CALCIUM 8.8 mg/dL (8.5-10.1); CARBON DIOXIDE 28.6 mmol/L (21-32); CREATININE 1.1 mg/dL (0.6-1.3); POTASSIUM 3.8 mmol/L (3.5-5.1); TOTAL BILIRUBIN 0.2 mg/dL (0.0-1.0); TOTAL PROTEIN, SERUM 7.5 g/dL (6.4-8.2)
[2023-06-11 03:46] VITALS: O2SAT 95
[2023-06-11] MEDS ORDERED: ACET-10509 PO (03:54)
== END 2023-06-11 04:17 | disposition home or self-care (01) ==
LOC: MED 20:01
DX: R60.0 Localized edema (principal); J44.9 Chronic obstructive pulmonary disease, unspecified; I10 Essential (primary) hypertension; F17.200 Nicotine dependence, unspecified, uncomplicated; Z88.0 Allergy status to penicillin; Z79.899 Other long term (current) drug therapy
CPT/HCPCS: 36415; 80053; 83880; 85025; 96374; 96375; 99284; J1885; J1940

== ENCOUNTER 2023-09-26 09:50 | Emergency (ER) | payer BC, MEDICAID ==
[~2023-09-26] VITALS: Ht 162.6 cm; Wt 98.0 kg
[~2023-09-26 09:50] MED LIST changes: +ACET-10509 PO; +MIRT-120 PO; -MIRT-91 PO
[2023-09-26 09:56] VITALS: BP 185/109; PULSE 97; RESP 20; TEMP 97.7; O2SAT 95
[2023-09-26] MEDS ORDERED: ACETAMINOPHEN EXTRA STRENGTH 500 MG TAB PO ONE (10:40)
[2023-09-26 10:49] VITALS: O2SAT 95
[2023-09-26] MEDS ORDERED: predniSONE 20 MG TAB PO ONE (10:55)
[2023-09-26] MEDS ORDERED: ALBUTEROL HFA MDI 90 MCG/ACTUATION 8 GM INH ONE (10:55)
[2023-09-26] MEDS ORDERED: ALBUTEROL 0.083% 2.5 MG/3 ML NEBU INH ONE (11:30)
[2023-09-26] MEDS ORDERED: HYDR-3293 PO (11:35)
[2023-09-26] MEDS ORDERED: AZIT250T4 PO (11:35)
[2023-09-26] MEDS ORDERED: ALBU0.0912 IH (11:35)
[2023-09-26] MEDS ORDERED: PRED20TA5 PO (11:35)
== END 2023-09-26 11:45 | disposition home or self-care (01) ==
LOC: MED 09:50
DX: F41.9 Anxiety disorder, unspecified (principal); J44.9 Chronic obstructive pulmonary disease, unspecified; I10 Essential (primary) hypertension; Z88.0 Allergy status to penicillin; Z79.899 Other long term (current) drug therapy
CPT/HCPCS: 99283; J7512

== ENCOUNTER 2023-12-02 07:53 | Emergency (ER) | payer BC ==
[~2023-12-02] VITALS: Ht 165.1 cm; Wt 81.6 kg
[~2023-12-02 07:53] MED LIST changes: +AZIT250T4 PO; +PRED20TA5 PO
[2023-12-02 08:00] VITALS: BP 143/81; PULSE 89; RESP 18; TEMP 98; O2SAT 99
[2023-12-02] MEDS: ONDANSETRON 4 MG ODT PO ONE (08:19)
[2023-12-02] MEDS: DICYCLOMINE 20 MG/2 ML VIAL IM ONE (08:19)
[2023-12-02 08:33] LABS: BASOPHILS % (AUTO) 0.2 % (0.0-2.0); EOSINOPHILS # (AUTO) 0.1 K/uL (0-0.4); EOSINOPHILS % (AUTO) 0.8 % (0.0-4.0); HEMATOCRIT 48.6 % (36-52); HEMOGLOBIN 16.4 g/dL (12.0-18.0); LYMPHOCYTES # (AUTO) 1.5 K/uL (2.0-11.5); MEAN CORPUSCULAR HEMOGLOBIN 30 pg (27-31); MEAN CORPUSCULAR HGB CONC 34 g/dL (33-37); MEAN CORPUSCULAR VOLUME 89.1 fL (80-94); MONOCYTES # (AUTO) 1.1 K/uL (0.8-1.0); MONOCYTES % (AUTO) 7.8 % (1.7-9.3); NEUTROPHILS # (AUTO) 11.3 K/uL (1.8-7.7); NEUTROPHILS % (AUTO) 80.2 % (42.2-75.2); PLATELET COUNT (AUTO) 277 K/uL (140-450); RED BLOOD CELL COUNT(AUTO) 5.45 MIL/uL (4.20-6.10); RED CELL DISTRIBUTION WIDTH 14.3 % (11.6-13.7); WHITE BLOOD COUNT (AUTO) 14.1 K/uL (4.8-10.8)
[2023-12-02 08:49] LABS: ALBUMIN 3.8 g/dL (3.4-5.0); CALCIUM 8.6 mg/dL (8.5-10.1); CARBON DIOXIDE 26.4 mmol/L (21-32); CREATININE 1.1 mg/dL (0.6-1.3); POTASSIUM 3.4 mmol/L (3.5-5.1); TOTAL BILIRUBIN 0.7 mg/dL (0.0-1.0); TOTAL PROTEIN, SERUM 9.1 g/dL (6.4-8.2)
[2023-12-02] MEDS ORDERED: BEN10 PO (09:20)
[2023-12-02] MEDS ORDERED: METR-435 PO (09:20)
[2023-12-02 09:33] VITALS: BP 130/80; PULSE 82; RESP 16; TEMP 98; O2SAT 98
== END 2023-12-02 09:33 | disposition home or self-care (01) ==
LOC: MED 07:53
DX: R19.7 Diarrhea, unspecified (principal); R11.10 Vomiting, unspecified; R10.84 Generalized abdominal pain; J44.9 Chronic obstructive pulmonary disease, unspecified; I10 Essential (primary) hypertension; Z79.899 Other long term (current) drug therapy; Z88.0 Allergy status to penicillin
CPT/HCPCS: 36415; 74176; 80053; 85025; 96372; 99285; J0500; Q0162